=== PATIENT | male | born 1970 | race Hispanic/Latino ===

== ENCOUNTER 2017-03-29 09:32 | Inpatient (IN) | payer BC, OTHER ==
[2017-03-29 10:06] LABS: Mean Corpuscular Volume 94.9 fl (80.0-94.0)
[2017-03-29 10:08] LABS: #Eosinphils 0.1 thou/uL (0.0-0.7); #Lymphocytes 1.3 thou/uL (1.20-3.40); #Monocytes 0.9 thou/uL (0.11-0.59); %Basophils 0.1 % (0.0-1.0); %Eosinophils 0.3 % (0.0-10.0); %Lymphocytes 7.6 % (21.0-51.0); %Monocytes 5.4 % (0.0-10.0); %Neutrophils 86.6 % (42.0-75.0); Hemoglobin 14.6 g/dL (14.0-18.0); Mean Corpuscular HGB CONC 32.1 g/dL (32.0-36.0); Mean Corpuscular Hemoglobin 30.5 pg (27.0-31.0); Mean Platelet Volume 7.8 fL (7.4-10.4); Platelet Count 244 thou/uL (130-400); RBC Distribution Width 12.6 % (11.5-14.5); Red Blood Cell (RBC) Count 4.78 mill/uL (4.70-6.10); White Blood Cell (WBC) Count 17.3 thou/uL (4.8-10.8)
[2017-03-29 10:09] LABS: PTT 26.9 SEC (22.9-36.1); Prothrombin Time 13.2 SEC (12.0-14.7)
[2017-03-29] MEDS ORDERED: Ketorolac Tromethamine 30 MG/ML VIAL ONE (10:09)
[2017-03-29 10:13] LABS: ALT (SGPT) 17 U/L (8-55); AST (SGOT) 20 U/L (5-34); Albumin 4.5 g/dL (3.5-5.0); Alkaline Phosphatase 93 U/L (40-150); Anion Gap 16 mmol/L (10-20); BUN (Urea Nitrogen) 16 mg/dL (8.9-20.6); Bilirubin, Total 1.1 mg/dL (0.2-1.2); CK (CPK) 116 U/L (30-200); Calc. Creatinine Clearance 0 mL/min (70-130); Calcium 9.6 mg/dL (7.8-10.44); Carbon Dioxide 24 mmol/L (22-29); Chloride 105 mmol/L (98-107); Estimated GFR-MDRD 83; Globulin 2.9 g/dL (2.4-3.5); Glucose 92 mg/dL (70-105); Potassium 3.6 mmol/L (3.5-5.1); Protein, Total 7.4 g/dL (6.0-8.3); Sodium 141 mmol/L (136-145)
--- NOTE | 2017-03-29 10:15 | RAD ---
FRONTAL VIEW CHEST: Date: 03/29/17 INDICATION: Shortness of breath. FINDINGS: There is shallow depth of inspiration. Cardiac silhouette is accentuated. There is interstitial and h azy alveolar density of each lung, which may be on the basis of pneumonia or edema. IMPRESSION: Interstitial and alveolar opacities bilaterally may reflect atypical pneumonia or edema. Clinical cor relation is recommended. In addition, recommend follow-up with dedicated 2 view chest series for furt her assessment. POS: [facility]
[2017-03-29] MEDS ORDERED: Dextrose 5% in Water 1,000 ML IV PRN (14:12)
[2017-03-29] MEDS ORDERED: Rib Fracture Protocol PO SCH (14:12)
[2017-03-29] MEDS ORDERED: Dextrose 50% Abboject 50 ML SYRINGE SLOW IVP PRN (14:12)
[2017-03-29] MEDS ORDERED: Cyclobenzaprine 10 MG TAB PO PRN (16:45)
[2017-03-29] MEDS: traMADol HCl 50 MG TAB PO SCH ×2 (17:14→23:40)
[2017-03-29] MEDS: Acetaminophen 500 MG TAB PO SCH ×2 (17:14→23:40)
[2017-03-29] MEDS ORDERED: Morphine 5 MG/ML SYRINGE SLOW IVP PRN (19:05)
[2017-03-29] MEDS: Gabapentin 300 MG CAP PO SCH (20:10)
[2017-03-29] MEDS: Famotidine 20 MG TAB PO SCH (20:10)
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
[2017-03-29] MEDS ORDERED: Ibuprofen 800 MG TAB PO SCH (22:00)
[2017-03-29] MEDS: Ketorolac Tromethamine 30 MG/ML VIAL IVP SCH (23:41)
[2017-03-30] MEDS: Ketorolac Tromethamine 30 MG/ML VIAL IVP SCH (05:36)
[2017-03-30] MEDS: Acetaminophen 500 MG TAB PO SCH ×4 (05:36→23:40)
[2017-03-30] MEDS: traMADol HCl 50 MG TAB PO SCH ×4 (05:37→23:40)
[2017-03-30] MEDS: Famotidine 20 MG TAB PO SCH ×2 (08:07→21:05)
[2017-03-30] MEDS: Gabapentin 300 MG CAP PO SCH ×3 (08:07→21:06)
--- NOTE | 2017-03-30 10:36 | RAD ---
PORTABLE AP CHEST: Date: 03/30/17 HISTORY: Multiple rib fractures. COMPARISON: 03/29/17. FINDINGS: There is interval increase in patchy parenchymal opacity at the right lung base, which could be relat ed to aspiration pneumonitis, contusion versus atelectasis. Linear parenchymal changes are also seen at the left lung base with associated patchy densities which may be related to atelectasis and/or con tusion. No pneumothorax or pleural effusion is seen. There is elevation of right hemidiaphragm, which is unchanged. There are left-sided rib fractures again seen. Cardiac silhouette and pulmonary vascul ature are within normal limits. IMPRESSION: 1. Patchy parenchymal opacity at the right lung base which could be related to aspiration pneumoniti s, atelectasis, or possibly contusion. No obvious right-sided rib fractures are visualized. 2. Linear and patchy parenchymal densities left lung base which could be related to atelectasis and/ or contusion or aspiration pneumonitis. Continued follow-up is recommended. 3. Left-sided rib fractures. POS: [facility]
[2017-03-30] MEDS: Ibuprofen 600 MG TAB PO SCH ×2 (13:42→21:05)
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
[2017-03-31] MEDS: Acetaminophen 500 MG TAB PO SCH ×2 (06:22→12:39)
[2017-03-31] MEDS: traMADol HCl 50 MG TAB PO SCH ×2 (06:23→12:38)
[2017-03-31] MEDS: Ibuprofen 600 MG TAB PO SCH (06:23)
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
[2017-03-31] MEDS: Famotidine 20 MG TAB PO SCH (08:29)
[2017-03-31] MEDS: Gabapentin 300 MG CAP PO SCH (08:29)
--- NOTE | 2017-03-31 08:31 | RAD ---
PORTABLE AP CHEST: Date: 03/31/17 HISTORY: Rib fractures, pneumothorax, contusion. This is a follow-up evaluation. COMPARISON: 03/30/17. FINDINGS: There is improved aeration at the left lung base, although linear densities are seen at the medial le ft lung base, which could be related to residual atelectasis. There is persistent elevation of the ri ght hemidiaphragm with parenchymal opacity at the right lung base, which again may be related to aspi ration pneumonitis, pneumonia, or atelectasis. Contusion is a possibility, but thought less likely. M ultiple left-sided rib fractures are again seen. No pneumothorax or pleural effusion is evident. IMPRESSION: Mild improvement in aeration at the left lung base. Chest is otherwise stable. POS: [facility]
[2017-03-31 12:27] VITALS: BP 149/92; TEMP 97.9
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
== END 2017-03-31 13:17 | disposition home or self-care (01) | DRG 200 ==
LOC: ERS 09:32 → SURG A 10:57
PROVIDERS: ADMIT Surgery; ATTEND Surgery
DX: S27.0XXA Traumatic pneumothorax, initial encounter (principal); S22.42XA Multiple fractures of ribs, left side, initial encounter for closed fracture; S27.322A Contusion of lung, bilateral, initial encounter; Y93.89 Activity, other specified; W55.22XA Struck by cow, initial encounter
CPT/HCPCS: 71045; 82550; 85610; 85730; 86850; 86900; 86901; 93005; 94640; 96374; J2270; G0390; J1885; J7620

== ENCOUNTER → 2017-03-29 | Emergency (ER) | payer BC, OTHER ==
[~2017-03-29] MED LIST: Fentanyl 100 MCG/2 ML VIAL ONE; Iopamidol 370 76% 100 ML VIAL ONE; Ondansetron HCl/PF 4 MG/2 ML Vial ONE
[2017-03-29 07:12] LABS: #Basophils 0.1 thou/uL (0.0-0.2); #Eosinphils 0.4 thou/uL (0.0-0.7); #Neutrophils 6.6 thou/uL (1.40-6.50); %Basophils 1.1 % (0.0-1.0); %Eosinophils 3.2 % (0.0-10.0); %Lymphocytes 27.3 % (21.0-51.0); %Monocytes 8.7 % (0.0-10.0); %Neutrophils 59.7 % (42.0-75.0); Hemoglobin 14.8 g/dL (14.0-18.0); Mean Corpuscular Hemoglobin 28.9 pg (27.0-31.0); Mean Corpuscular Volume 90.4 fl (80.0-94.0); Mean Platelet Volume 6.7 fL (7.4-10.4); Platelet Count 301 thou/uL (130-400); RBC Distribution Width 12.1 % (11.5-14.5)
[2017-03-29 07:24] LABS: ALT (SGPT) 53 U/L (8-55); AST (SGOT) 34 U/L (5-34); Albumin 4.2 g/dL (3.5-5.0); Alkaline Phosphatase 68 U/L (40-150); Anion Gap 14 mmol/L (10-20); BUN (Urea Nitrogen) 13 mg/dL (8.9-20.6); Bilirubin, Total 0.5 mg/dL (0.2-1.2); Calc. Creatinine Clearance 0 mL/min (70-130); Carbon Dioxide 22 mmol/L (22-29); Chloride 107 mmol/L (98-107); Estimated GFR-MDRD Greater than 90; Globulin 3.7 g/dL (2.4-3.5); Glucose 125 mg/dL (70-105); Protein, Total 7.9 g/dL (6.0-8.3); Sodium 139 mmol/L (136-145)
--- NOTE | 2017-03-29 08:15 | CT ---
CT CHEST WITH IV CONTRAST CT ABDOMEN WITH IV CONTRAST CT PELVIS WITH IV CONTRAST CORONAL AND SAGITTAL REFORMATIONS OF THE THORACOLUMBAR SPINE: HISTORY: Trauma, pain in the anterior posterior chest wall. FINDINGS: No evidence of mediastinal hematoma or intimal flap in the aorta is seen to suggest aortic transectio n. No pleural or pericardial effusions are seen. No pneumothoraces are identified. There is scatte red bullous change. There are patchy ground-glass infiltrates in the lower lung woodard posteriorly. The liver, spleen, pancreas, adrenal glands, and kidneys are intact. There are low-density lesions i n the right kidney, likely cysts. No calcified gallstones are seen. No free air or free fluid is no zuri in the abdomen or pelvis. The urinary bladder is incompletely distended. A normal-appearing pilar endix is present. No fracture or dislocation is seen in the thoracolumbar spine. There are nondisplaced fractures invo lving the left 3rd, 4th, and 5th ribs and mildly displaced fracture of the left 8th rib. IMPRESSION: 1. Patchy ground-glass infiltrates in the lower lung woodard. 2. No CT evidence of solid organ injury. 3. Left-sided rib fractures without pneumothorax. POS: [facility]
== END ==
LOC: SCSER 06:39
DX: S22.42XA Multiple fractures of ribs, left side, initial encounter for closed fracture (principal); S27.321A Contusion of lung, unilateral, initial encounter; W55.22XA Struck by cow, initial encounter
CPT/HCPCS: 71260; 74177; 80053; 85025; 93005; 96361; 96374; 96375; J2270; J2405; J3010

== ENCOUNTER 2017-04-11 10:10 | Outpatient (CLI) | payer OTHER ==
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
== END 2017-04-11 10:11 | disposition home or self-care (01) ==
LOC: RAD 10:10
PROVIDERS: ATTEND Physician Assistant
DX: S22.42XD Multiple fractures of ribs, left side, subsequent encounter for fracture with routine healing (principal); S29.8XXD Other specified injuries of thorax, subsequent encounter
CPT/HCPCS: 71046

== ENCOUNTER 2018-01-16 07:55 | Outpatient (CLI) | payer BC ==
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
[2018-01-16 08:57] LABS: #Basophils 0.1 thou/uL (0.0-0.2); #Eosinphils 0.3 thou/uL (0.0-0.7); #Lymphocytes 2.1 thou/uL (1.20-3.40); #Neutrophils 8.7 thou/uL (1.40-6.50); %Basophils 0.9 % (0.0-1.0); %Eosinophils 2.4 % (0.0-10.0); %Lymphocytes 17.2 % (21.0-51.0); %Monocytes 8.3 % (0.0-10.0); %Neutrophils 71.2 % (42.0-75.0); Hemoglobin 13.6 g/dL (14.0-18.0); Mean Corpuscular HGB CONC 31.4 g/dL (32.0-36.0); Mean Platelet Volume 8.1 fL (7.4-10.4); Platelet Count 239 thou/uL (130-400); RBC Distribution Width 13.6 % (11.5-14.5); Red Blood Cell (RBC) Count 5.04 mill/uL (4.70-6.10); White Blood Cell (WBC) Count 12.2 thou/uL (4.8-10.8)
[2018-01-16 09:06] LABS: ALT (SGPT) 53 U/L (8-55); AST (SGOT) 33 U/L (5-34); Alkaline Phosphatase 75 U/L (40-150); Anion Gap 12 mmol/L (10-20); BUN (Urea Nitrogen) 13 mg/dL (8.9-20.6); Bilirubin, Total 0.5 mg/dL (0.2-1.2); CRP (Inflammatory) 2.14 mg/dL (= or < 0.5); Calc. Creatinine Clearance 0 mL/min (70-130); Calcium 9.4 mg/dL (7.8-10.44); Carbon Dioxide 25 mmol/L (22-29); Cardiac Risk 3.2 (Less than 4.5); Chloride 106 mmol/L (98-107); Cholesterol 180 mg/dl (< 200 Desired); Estimated GFR-MDRD Greater than 90; Globulin 4.3 g/dL (2.4-3.5); Glucose 95 mg/dL (70-105); HDL Cholesterol 56 mg/dL (>60 Neg Risk); LDL Cholesterol, Calculated 106 mg/dL; Protein, Total 8.3 g/dL (6.0-8.3); Sodium 139 mmol/L (136-145); Triglycerides 89 mg/dL (Less than 150)
[2018-01-16 09:25] LABS: Free T4 (Free Thyroxine) 1.17 ng/dL (0.70-1.48)
[2018-01-16 11:44] LABS: Gamma GT (GGT) 43 U/L (12-64)
[2018-01-16 12:03] LABS: Vitamin D, 25 Hydroxy 12.5 ng/ml (> 30.0)
== END 2018-01-16 07:56 | disposition home or self-care (01) ==
LOC: SCSRAD 07:55
PROVIDERS: ATTEND Family Medicine
DX: Z00.00 Encounter for general adult medical examination without abnormal findings (principal); M25.511 Pain in right shoulder; M25.512 Pain in left shoulder; M25.561 Pain in right knee; M25.562 Pain in left knee; M25.532 Pain in left wrist; M25.531 Pain in right wrist; S22.42XA Multiple fractures of ribs, left side, initial encounter for closed fracture; M17.11 Unilateral primary osteoarthritis, right knee
CPT/HCPCS: 36415; 80053; 80061; 82306; 82977; 84439; 84443; 84481; 85025; 85652; 86140